=== PATIENT | male | born 1975 | race African-American/Black ===

== ENCOUNTER 2017-10-31 20:09 | Emergency (ER) | payer SELFPAY ==
[2017-10-31] MEDS ORDERED: Lidocaine 1% w/Epinephrine 1:100K 20 ML VIAL ONE (20:24)
[2017-10-31] MEDS ORDERED: HYDROcodone/Acetaminophen 5/325 mg Tablet ONE (20:29)
--- NOTE | 2017-10-31 21:02 | RAD ---
LEFT FEMUR TWO VIEWS 10/31/17 HISTORY: Left leg injury. FINDINGS: Femur is intact. No acute fracture, dislocation, or aggressive osseous erosions are apparent. Soft ti ssue gas is apparent at the medial aspect of the mid thigh, where a tiny, thin density is 0.6 cm in l ength. IMPRESSION: 1. No acute osseous abnormalities are demonstrated. 2. Probable tiny thin foreign body within the medial mid thigh soft tissues. POS: LEONARDO
[2017-10-31] MEDS ORDERED: Bacitracin Zinc 1 Packet ONE ×2 (22:03→22:16)
== END 2017-10-31 22:26 | disposition home or self-care (01) ==
LOC: ERS 20:09
DX: S70.312A Abrasion, left thigh, initial encounter (principal); I10 Essential (primary) hypertension; F17.210 Nicotine dependence, cigarettes, uncomplicated; W22.8XXA Striking against or struck by other objects, initial encounter; Y92.69 Other specified industrial and construction area as the place of occurrence of the external cause
CPT/HCPCS: J2001

== ENCOUNTER 2018-10-11 14:37 | Emergency (ER) | payer SELFPAY | END 2018-10-11 16:28 | disposition home or self-care (01) | LOC: ERS 14:37 | DX: J01.90 Acute sinusitis, unspecified (principal); I10 Essential (primary) hypertension; F17.210 Nicotine dependence, cigarettes, uncomplicated | CPT/HCPCS: 87804; 99283 ==

== ENCOUNTER 2018-12-20 20:11 | Emergency (ER) | payer SELFPAY ==
--- NOTE | 2018-12-20 22:16 | RAD ---
PA AND LATERAL CHEST X-RAY 12/20/18 HISTORY: Chest congestion for three days. COMPARISON: 07/08/14. FINDINGS: The cardiac silhouette and pulmonary vasculature are within normal limits. The lungs remain clear. T here is suggestion of minimal vascular calcifications in the aortic arch. No other interval change. IMPRESSION: No acute cardiopulmonary process. POS: SHIRA
== END 2018-12-20 21:45 | disposition home or self-care (01) ==
LOC: ERS 20:11
DX: R05 Cough (principal); R09.81 Nasal congestion; I10 Essential (primary) hypertension; F17.210 Nicotine dependence, cigarettes, uncomplicated
CPT/HCPCS: 71046